=== PATIENT | female | born 1965 | race Caucasian/White ===

== ENCOUNTER 2016-03-28 10:54 | Emergency (ER) | payer MEDICARE ==
[2013-01-21 14:37] VITALS: BMI 22.8
[~2016-03-28 10:54] MED LIST: COPAXONE INJ20 MG/ML SQ; LYRICA200 MG PO; ORAPRED ODT10 MG/TAB PO; TOPAMAX100 MG PO; TOPAMAX25 MG PO; TYLENOL325 MG PO
== END 2016-03-28 17:37 | disposition left against medical advice (07) ==
LOC: D.ER 10:54
DX: R05 Cough (principal)

== ENCOUNTER 2016-05-13 12:08 | Emergency (ER) | payer MEDICARE ==
[2013-01-21 14:37] VITALS: BMI 22.8
[2016-05-13 14:33] LABS: BASOPHILS 0.3 % (0.0-2.0); EOSINOPHILS 1.7 % (0-7); HEMATOCRIT 35.5 % (36.0-48.0); HEMOGLOBIN 11.2 g/dL (12-16); IMMATURE GRANULOCYTES 0.3 % (0-5); LYMPHOCYTES 38.1 % (15-50); MCH 27.9 pg (26.0-34.0); MCHC 31.5 g/dL (31.0-37.0); MCV 88.5 fL (80.0-100.0); MEAN PLATELET VOLUME 11.4 fL (7.4-10.4); MONOCYTES 4.5 % (2-11); NEUTROPHILS 55.1 % (40-80); PLATELET COUNT 230 10x3/uL (130-400); RBC 4.01 10x6/uL (4.00-5.40); RDW 15.5 % (11.5-14.5); WBC 6.6 10x3/uL (4.8-10.8)
[2016-05-13 14:51] LABS: ALBUMIN 3.4 g/dL (3.4-5.0); ANION GAP 12.8 mmol/L (8-16); BILIRUBIN - TOTAL 0.35 mg/dL (0.2-1.3); CALCIUM 8.8 mg/dL (8.5-10.1); CARBON DIOXIDE 26.8 mmol/L (21.0-32.0); CREATININE - SERUM 0.9 mg/dL (0.6-1.3); POTASSIUM - SERUM 3.6 mmol/L (3.5-5.1); PROTEIN - SERUM 6.2 g/dL (6.4-8.2)
== END 2016-05-13 15:48 | disposition home or self-care (01) ==
LOC: D.ER 12:08
PROVIDERS: Physician Assistant Medical
DX: G89.29 Other chronic pain (principal); F17.200 Nicotine dependence, unspecified, uncomplicated

== ENCOUNTER 2016-07-05 10:57 | Emergency (ER) | payer MEDICARE ==
[2013-01-21 14:37] VITALS: BMI 22.8
== END 2016-07-05 12:23 | disposition home or self-care (01) ==
LOC: D.ER 10:57
DX: T14.8 Other injury of unspecified body region (principal); X58.XXXA Exposure to other specified factors, initial encounter; Y93.89 Activity, other specified; Y92.89 Other specified places as the place of occurrence of the external cause; F17.200 Nicotine dependence, unspecified, uncomplicated

== ENCOUNTER 2016-07-08 12:14 | Emergency (ER) | payer MEDICARE ==
[2013-01-21 14:37] VITALS: BMI 22.8
== END 2016-07-08 14:37 | disposition left against medical advice (07) ==
LOC: D.ER 12:14
DX: M54.9 Dorsalgia, unspecified (principal); W06.XXXA Fall from bed, initial encounter; Y93.89 Activity, other specified; Y92.89 Other specified places as the place of occurrence of the external cause

== ENCOUNTER 2016-07-11 07:49 | Emergency (ER) | payer MEDICARE ==
[2013-01-21 14:37] VITALS: BMI 22.8
== END 2016-07-11 09:03 | disposition home or self-care (01) ==
LOC: D.ER 07:49
DX: R51 Headache (principal); M54.2 Cervicalgia; W06.XXXA Fall from bed, initial encounter; Y93.89 Activity, other specified; Y92.89 Other specified places as the place of occurrence of the external cause; F17.200 Nicotine dependence, unspecified, uncomplicated

== ENCOUNTER 2016-07-30 13:01 | Emergency (ER) | payer MEDICARE ==
[2013-01-21 14:37] VITALS: BMI 22.8
[2016-07-30 15:03] LABS: BASOPHILS 0.9 % (0-2); EOSINOPHILS 3.6 % (0-7); HEMATOCRIT 40.5 % (36.0-48.0); IMMATURE GRANULOCYTES 0.2 % (0-5); LYMPHOCYTES 32.1 % (15-50); MCHC 32.1 g/dL (31.0-37.0); MCV 87.1 fL (80.0-100.0); MEAN PLATELET VOLUME 12.9 fL (7.4-10.4); MONOCYTES 6.5 % (2-11); NEUTROPHILS 56.7 % (40-80); PLATELET COUNT 190 10x3/uL (130-400); RBC 4.65 10x6/uL (4.00-5.40); RDW 16.4 % (11.5-14.5); WBC 6.3 10x3/uL (4.8-10.8)
[2016-07-30 15:26] LABS: ANION GAP 13.9 mmol/L (8-16); BILIRUBIN - TOTAL 0.98 mg/dL (0.2-1.3); CALCIUM 9.8 mg/dL (8.5-10.1); CARBON DIOXIDE 27.4 mmol/L (21.0-32.0); CREATININE - SERUM 1.5 mg/dL (0.6-1.3); POTASSIUM - SERUM 3.3 mmol/L (3.5-5.1); PROTEIN - SERUM 7.9 g/dL (6.4-8.2)
== END 2016-07-30 18:25 | disposition home or self-care (01) ==
LOC: D.ER 13:01
PROVIDERS: Emergency Medicine
DX: R51 Headache (principal); F17.200 Nicotine dependence, unspecified, uncomplicated

== ENCOUNTER 2016-09-23 11:25 | Emergency (ER) | payer MEDICARE ==
[2013-01-21 14:37] VITALS: BMI 22.8
== END 2016-09-23 13:56 | disposition home or self-care (01) ==
LOC: D.ER 11:25
DX: J40 Bronchitis, not specified as acute or chronic (principal); H92.02 Otalgia, left ear

== ENCOUNTER 2017-09-08 15:05 | Emergency (ER) | payer MEDICARE ==
[~2017-09-08] VITALS: Ht 165.1 cm; Wt 46.8 kg
[2017-09-08 15:21] VITALS: Ht 165.1 cm; Wt 46.8 kg
[2017-09-08 15:42] LABS: APPEARANCE HAZY (CLEAR); BILIRUBIN NEGATIVE (NEGATIVE); COLOR YELLOW (YELLOW); GLUCOSE NEGATIVE (NEGATIVE); KETONE NEGATIVE (NEGATIVE); NITRITE NEGATIVE (NEGATIVE); PROTEIN TRACE mg/dL (NEGATIVE); UROBILINOGEN NORMAL (NORMAL)
[2017-09-08] MEDS ORDERED: TYLENOL W/CODEI1 TAB PO (17:26)
[2017-09-08] MEDS ORDERED: VIBRAMYCIN 100100 MG PO (17:26)
[2017-09-08 17:40] VITALS: BP 133/72
== END 2017-09-08 17:42 | disposition home or self-care (01) ==
LOC: D.ER 15:05
PROVIDERS: Emergency Medicine
DX: L03.315 Cellulitis of perineum (principal); M54.5 Low back pain; F17.200 Nicotine dependence, unspecified, uncomplicated

== ENCOUNTER 2019-06-06 14:54 | Inpatient (IN) | payer MEDICARE ==
[~2019-06-06] VITALS: Ht 165.1 cm; Wt 59.1 kg
[~2019-06-06 14:54] MED LIST changes: +TYLENOL W/CODEI1 TAB PO; +VIBRAMYCIN 100100 MG PO
[2019-06-06] MEDS ORDERED: HYDROCODON-ACE1 EAC7 PO (15:25)
[2019-06-06 15:27] VITALS: BP 133/67
--- NOTE | 2019-06-06 15:27 | NUR ---
LABS HAVE BEEN DRAWN
[2019-06-06 15:29] LABS: BASOPHILS 0.3 % (0-2); EOSINOPHILS 0.3 % (0-7); HEMATOCRIT 33.1 % (36.0-48.0); HEMOGLOBIN 10.6 g/dL (12-16); IMMATURE GRANULOCYTES 0.3 % (0-5); LYMPHOCYTES 19.1 % (15-50); MCH 26.6 pg (26.0-34.0); MEAN PLATELET VOLUME 9.5 fL (7.4-10.4); MONOCYTES 7.2 % (2-11); NEUTROPHILS 72.8 % (40-80); PLATELET COUNT 226 10x3/uL (130-400); RBC 3.99 10x6/uL (4.00-5.40); RDW 17.2 % (11.5-14.5); WBC 12.2 10x3/uL (4.8-10.8)
[2019-06-06 15:38] LABS: ANION GAP 15.2 mmol/L (8-16); CALCIUM 9.1 mg/dL (8.5-10.1); CARBON DIOXIDE 25.5 mmol/L (21.0-32.0); CREATININE - SERUM 1.6 mg/dL (0.6-1.3); POTASSIUM - SERUM 3.7 mmol/L (3.5-5.1)
[2019-06-06 15:44] LABS: ALBUMIN 3.3 g/dL (3.4-5.0); BILIRUBIN - TOTAL 1.01 mg/dL (0.2-1.3)
[2019-06-06 15:49] LABS: BILIRUBIN NEGATIVE (NEGATIVE); GLUCOSE NEGATIVE (NEGATIVE); KETONE NEGATIVE (NEGATIVE); NITRITE POSITIVE (NEGATIVE); UROBILINOGEN NORMAL (NORMAL)
[2019-06-06 15:53] LABS: EPITHELIAL CELLS 0-5 /hpf (0-5); WHITE CELLS - URINE 0-5 /hpf (NEGATIVE)
[2019-06-06 15:54] LABS: BACTERIA MODERATE /hpf (NEGATIVE)
[2019-06-06 17:03] VITALS: BP 136/55
--- NOTE | 2019-06-06 19:01 | NUR ---
BEDSIDE REPORT GIVEN TO MONICA TOBIN
[2019-06-06 20:04] VITALS: BP 137/68
--- NOTE | 2019-06-06 21:18 | NUR ---
PT RESTING WITH EYES CLOSED AT THIS TIME. RESPIRATIONS EVEN AND UNLABORED. PT ARROUSES TO TACTILE STIMULATION.
--- NOTE | 2019-06-06 21:32 | NUR ---
REPORT RECEIVED FROM MONICA TOBIN, PT CARE ASSUMED. AWAITING PT'S ARRIVAL TO ROOM 210.
--- NOTE | 2019-06-06 21:35 | NUR ---
PT AMBULATED TO RESTROOM, SLOW STEADY GAIT NOTED. NO SIGNS DISTRESS
[2019-06-07] VITALS: BP 99/58
[2019-06-07 00:07] VITALS: BP 94/41; Ht 165.1 cm; Wt 59.1 kg
[2019-06-07 04:30] VITALS: BP 115/71
--- NOTE | 2019-06-07 07:00 | NUR ---
RECEIVED REPORT. ASSUMED CARE OF PATIENT. PATIENT SITTING UP IN BED, ALERT/ORIENTED. PATIENT STATES THAT HER PAIN IS NOT RESOLVED WITH MORPHINE. PATIENT EDUCATED ON BLOODPRESSURE CHECKS PRIOR TO PAIN MEDICATION ADMINISTRATION. CALL LIGHT WITHIN REACH. PATIENT REQUESTING PETROLEUM FOR AREA TO RIGHT FOREARM THAT APPEARS TO BE AN OPEN AREA OF SCAR TISSUE WITH SURROUNDING AREA OR ERYTHEMA.
[2019-06-07 07:42] LABS: BASOPHILS 0.2 % (0-2); EOSINOPHILS 1.1 % (0-7); HEMATOCRIT 30.2 % (36.0-48.0); HEMOGLOBIN 9.5 g/dL (12-16); IMMATURE GRANULOCYTES 0.4 % (0-5); LYMPHOCYTES 25.5 % (15-50); MCH 26.7 pg (26.0-34.0); MCHC 31.5 g/dL (31.0-37.0); MCV 84.8 fL (80.0-100.0); MEAN PLATELET VOLUME 10.3 fL (7.4-10.4); NEUTROPHILS 67.8 % (40-80); PLATELET COUNT 196 10x3/uL (130-400); RBC 3.56 10x6/uL (4.00-5.40); RDW 17.9 % (11.5-14.5)
--- NOTE | 2019-06-07 07:42 | NUR ---
ORANGE AND CRANBERRY JUICE PROVIDED UPON REQUEST.
[2019-06-07 07:53] LABS: WBC 8.4 10x3/uL (4.8-10.8)
[2019-06-07 08:00] LABS: PROTIME 13.2 SECONDS (11.6-15.0)
[2019-06-07 08:06] LABS: ALBUMIN 2.6 g/dL (3.4-5.0); BILIRUBIN - TOTAL 0.41 mg/dL (0.2-1.3); CALCIUM 8.1 mg/dL (8.5-10.1); CARBON DIOXIDE 22.7 mmol/L (21.0-32.0); CREATININE - SERUM 1.3 mg/dL (0.6-1.3); MAGNESIUM - SERUM 1.7 mg/dL (1.8-2.4); PHOSPHOROUS 3.1 mg/dL (2.5-4.9); PROTEIN - SERUM 6.1 g/dL (6.4-8.2); THYROID STIMULATING HORMONE 0.59 uIU/mL (0.36-3.74)
[2019-06-07 08:08] LABS: ANION GAP 14.4 mmol/L (8-16); POTASSIUM - SERUM 3.1 mmol/L (3.5-5.1)
[2019-06-07 08:21] VITALS: BP 112/67
--- NOTE | 2019-06-07 10:02 | NUR ---
MEDICATED FOR PAIN AT THIS TIME. PATIENT HAS MULTIPLE COMORBID COMPLAINTS.
--- NOTE | 2019-06-07 12:16 | NUR ---
SITTING UP IN BED. MALE VISITOR AT BEDSIDE. PATIENT WONDERING IF THEY ARE GOING TO LET HER GO HOME BECAUSE THE MALE VISITOR IS IN [place] [employer] [employer] AND THEY LIVE IN [place]. THEY ARE TRYING TO PREVENT EXTRA TRIPS DUE TO THE DISTANCE.
[2019-06-07 14:21] LABS: UDS - AMPHET NEGATIVE QUAL (NEGATIVE); UDS - BARB NEGATIVE QUAL (NEGATIVE); UDS - BENZO NEGATIVE QUAL (NEGATIVE); UDS - COCAINE NEGATIVE QUAL (NEGATIVE); UDS - OPIATE NEGATIVE QUAL (NEGATIVE); UDS - PCP NEGATIVE QUAL (NEGATIVE); UDS - THC NEGATIVE QUAL (NEGATIVE)
--- NOTE | 2019-06-07 14:40 | NUR ---
MEDICATED FOR PAIN AT THIS TIME. NO DISTRESS.
[2019-06-07 17:16] VITALS: BP 137/52
--- NOTE | 2019-06-07 17:39 | NUR ---
NO DISTRESS. CALL LIGHT WITHIN REACH. CONSUMING PM MEAL. DENIES NEEDS.
--- NOTE | 2019-06-07 19:36 | NUR ---
REPORT RECEIVED. BEDSIDE SHIFT REPORT COMPLETE. PT UP WALKING FROM RESTROOM BACK TO BED. C/O PAIN REQUESTING PAIN MEDICATION. RR EVEN AND UNLABORED ON RA. NO S/SX OF DISTRESS OBSERVED AT THIS TIME. ENCOURAGED USE OF CALL LIGHT FOR ASSISTANCE. CALL LIGHT IN REACH. WILL CTM.
[2019-06-07 20:00] VITALS: BP 94/56
[2019-06-08 04:00] VITALS: BP 111/63
--- NOTE | 2019-06-08 07:00 | NUR ---
RECEIVED REPORT. ASSUMED CARE OF PATIENT. AWAKE,ALERT AND SITTING UP IN BED. RESP EVEN AND UNLABORED. ASSISTED PATIENT OOB TO RESTROOM. WHITE BOARD UPDATED. PATIENT DENIES NEEDS AT THIS TIME. NO DISTRESS.
[2019-06-08 07:41] LABS: BASOPHILS 0.4 % (0-2); EOSINOPHILS 1.6 % (0-7); HEMATOCRIT 29.2 % (36.0-48.0); HEMOGLOBIN 9.1 g/dL (12-16); IMMATURE GRANULOCYTES 0.2 % (0-5); LYMPHOCYTES 48.8 % (15-50); MCH 26.7 pg (26.0-34.0); MCHC 31.2 g/dL (31.0-37.0); MCV 85.6 fL (80.0-100.0); PLATELET COUNT 212 10x3/uL (130-400); RBC 3.41 10x6/uL (4.00-5.40); RDW 18.4 % (11.5-14.5); WBC 5.6 10x3/uL (4.8-10.8)
[2019-06-08 08:03] LABS: ALBUMIN 2.5 g/dL (3.4-5.0); ANION GAP 15.4 mmol/L (8-16); BILIRUBIN - TOTAL 0.27 mg/dL (0.2-1.3); CALCIUM 8.7 mg/dL (8.5-10.1); CARBON DIOXIDE 23.3 mmol/L (21.0-32.0); MAGNESIUM - SERUM 1.7 mg/dL (1.8-2.4); POTASSIUM - SERUM 3.7 mmol/L (3.5-5.1)
[2019-06-08 08:05] LABS: PHOSPHOROUS 4.2 mg/dL (2.5-4.9)
[2019-06-08 08:08] VITALS: BP 130/66
--- NOTE | 2019-06-08 08:40 | NUR ---
MEDICATED FOR PAIN AT THIS TIME. NO DISTRESS. CALL LIGHT WITHIN REACH.
--- NOTE | 2019-06-08 11:35 | NUR ---
MEDICATED WITH PYRIDIUM. PATIENT CONTINUES TO COMPLAIN ABOUT BLADDER PAIN. NO DISTRESS. RESTING IN BED.
[2019-06-08 11:44] VITALS: BP 107/52
--- NOTE | 2019-06-08 12:15 | NUR ---
PATIENT RESTING IN BED. UTENSILS PROVIDED, PATIENT PREFERS TO CONSUME NOON MEAL WITH HANDS. PATIENT AT BEDSIDE. NO DISTRESS. DENIES NEEDS AT THIS TIME.
[2019-06-08] MEDS ORDERED: AZITHROMYCIN500 MG PO (13:54)
[2019-06-08] MEDS ORDERED: OMNICEF300 MG PO (13:54)
--- NOTE | 2019-06-08 14:09 | NUR ---
PATIENT OFFERED TYLENOL AND SHE REFUSED. PATIENT NOTIFIED OF HER DISCHARGE. PATIENT NOT HAPPY ABOUT BEING DISCHARGED FROM THE FACILITY.
--- NOTE | 2019-06-08 14:12 | NUR ---
TOBACCO QUITLINE FORM COMPLETED AND FAXED.
--- NOTE | 2019-06-08 14:48 | NUR ---
20 GAUGE IV CATHETER REMOVED FROM LEFT HAND. CATHETER TIP INTACT. NO BLEEDING FROM SITE. 2X2 GAUZE APPLIED AND SECURED WITH BANDAID. TELEMETRY UNIT REMOVED AND RETURNED TO [facility]. DISCHARGE INSTRUCTIONS PROVIDED TO PATIENT. PATIENT VERBALIZED UNDERSTANDING OF ALL INSTRUCTIONS PROVIDED BY TEACHBACK METHOD. PATIENTS LOADING PERSONAL ITEMS INTO CAR AT THIS TIME.
--- NOTE | 2019-06-08 14:53 | NUR ---
PATIENT LEFT UNIT VIA WHEELCHAIR IN NO ACUTE DISTRESS. PATIENT THANKED THIS ASSOCIATE CIVIL ENGINEER FOR ALL CARES RENDERED. PATIENT LEFT UNIT WITH ALL PERSONAL BELONGINGS INCLUDING "RELAXATION GOGGLES" AND ATTACHMENT DEVICE PER WHAT THE PATIENT CALLED IT. PATIENT DISCHARGED TO HOME WITH HER VIA PRIVATE CAR.
--- NOTE | 2019-06-09 12:16 | EC ---
PATIENT:LISA ADEN DATE OF SERVICE: 06/06/19 SEX: F MEDICAL RECORD: [id number] DATE OF : 63 LOCATION:D.M2 D.210 AGE OF PATIENT: 53 ADMISSION DATE: 06/06/19 REFERRING PHYSICIAN: INTERPRETING PHYSICIAN: TONNY DUMONT MD ECHOCARDIOGRAM REPORT ECHO CHARGES 4 ECHO COMPLETE Date: 06/07/19 CLINICAL DIAGNOSIS: NEW ONSET OF ACUTE EDEAM, SOB POST URETERAL STENT ECHOCARDIOGRAPHIC MEASUREMENTS (adult normal given) AC root (d.<3.7cm) 2.9 cm LV Septum d (<1.2 cm> 1.1 cm Valve Excursion 1.6 cm LV Septum (systole) 1.2 cm Left Atria (s.<4.0cm> 3.9 cm LVPW d(<1.2cm) 1.2 cm RV (d.<2.3cm) 3.4 cm LVPW (sytole) 1.4 cm LV diastole(<5.6CM) 3.7 cm MV E-F(>70mm/sec) cm LV systole 2.7 cm LVOT Diameter 1.8 cm MV exc.(>10mm) 1.4 cm Est.ejection fraction (50-75%) % DOPPLER: LVIT cm/sec A 80.0 cm/sec E 112 cm/sec LA cm/sec RVSP 20 mmHg LVOT 114 cm/sec AOP1/2T m/s Asc. Ao 192 cm/sec RVOT 74 cm/sec RA cm/sec PA 128 cm/sec AV Gradient Peak 14.77mmHg AV Mean 8.96 mmHg AV Area 1.6 cm MV Gradient Peak 5.20 mmHg MV Mean 2.17 mmHg MV Area cm COMMENTS: Wire Roller: 2 HUGH MARISCAL Knife Blade Polisher: 3 Dr. Moya TAPE# PACS Pericardial Effusion N DATE OF SERVICE: Adequate 2D, color flow imaging, spectral Doppler, and M-Mode. No LVH. LV internal dimensions are normal. Wall motion is normal. EF is greater than or equal to 55%. Aortic valve is tricuspid. No evidence of stenosis by Doppler interrogation. Left atrium is normal. Mitral valve shows no prolapse. Trivial MR. Right-sided chambers are grossly normal. Trivial TR. TRANSINT:[id number] Voice Confirmation ID: [id number] DOCUMENT ID: [id number] ECHOCARDIOGRAM REPORT [id number] LISA ADEN GREGORY A MD at 1216 CC: [id number] DICTATION DATE: 06/08/19 1034 HORSE TRAINER: 06/08/19 1228 DIS IN 06/08/19 [place] [id number] [place] [id number]
== END 2019-06-08 15:03 | disposition home or self-care (01) | DRG 690 ==
LOC: D.ER 14:54 → D.M2 21:11
PROVIDERS: Family Medicine; ADMIT Emergency Medicine; ATTEND Emergency Medicine
DX: N39.0 Urinary tract infection, site not specified (principal); N17.9 Acute kidney failure, unspecified; F17.213 Nicotine dependence, cigarettes, with withdrawal; D64.9 Anemia, unspecified; K59.00 Constipation, unspecified; F41.8 Other specified anxiety disorders; G89.29 Other chronic pain; M54.9 Dorsalgia, unspecified; E87.6 Hypokalemia; E83.42 Hypomagnesemia

== ENCOUNTER → 2019-08-04 10:13 | Outpatient (CLI) | payer MEDICARE ==
[2019-06-07 00:07] VITALS: BMI 21.6
[~2019-08-04 10:13] MED LIST changes: +AZITHROMYCIN500 MG PO; +HYDROCODON-ACE1 EAC7 PO; +OMNICEF300 MG PO
== END | disposition home or self-care (01) ==
LOC: D.MRI 07-30 10:00
PROVIDERS: ATTEND Psychiatry & Neurology Neurology
DX: G50.0 Trigeminal neuralgia (principal)